=== PATIENT | female | born 2000 | race Two or more races ===

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

== ENCOUNTER 2022-08-13 08:00 | Outpatient (CLI) | payer MEDICAID ==
[2022-08-13 23:15] LABS: CHLAMYDIA TRACHOMATIS DNA NEGATIVE (NEGATIVE); NEISSERIA GONORRHOEAE DNA NEGATIVE (NEGATIVE); TRICHOMONAS VAGINALIS DNA NEGATIVE (NEGATIVE)
== END 2022-08-13 23:59 | disposition home or self-care (01) ==
LOC: LAB.WC 08:00
PROVIDERS: ATTEND Nurse Practitioner
DX: Z11.3 Encounter for screening for infections with a predominantly sexual mode of transmission (principal)
CPT/HCPCS: 87491; 87591; 87661

== ENCOUNTER 2023-06-29 08:00 | Outpatient (CLI) | payer MEDICAID ==
[2023-06-29 23:13] LABS: NEISSERIA GONORRHOEAE DNA NEGATIVE (NEGATIVE); TRICHOMONAS VAGINALIS DNA NEGATIVE (NEGATIVE)
[2023-06-29 23:14] LABS: CHLAMYDIA TRACHOMATIS DNA POSITIVE (NEGATIVE)
== END 2023-06-29 23:59 | disposition home or self-care (01) ==
LOC: LAB.WC 08:00
PROVIDERS: ATTEND Nurse Practitioner
DX: Z11.3 Encounter for screening for infections with a predominantly sexual mode of transmission (principal)
CPT/HCPCS: 87491; 87591; 87661

== ENCOUNTER 2023-06-29 14:47 | Outpatient (CLI) | payer MEDICAID ==
[2023-06-30 05:12] LABS: RPR Non Reactive (Non Reactive)
[2023-06-30 07:10] LABS: HBsAG SCREEN Negative (Negative); HCV AB Non Reactive (Non Reactive); HIV SCREEN 4TH GENERATION Non Reactive (Non Reactive)
[2023-06-30 08:10] LABS: HSV 2 IGG TYPE SPEC <0.91 index (0.00-0.90)
== END 2023-06-29 14:48 | disposition home or self-care (01) ==
LOC: LAB 14:47
PROVIDERS: ATTEND Nurse Practitioner
DX: Z11.3 Encounter for screening for infections with a predominantly sexual mode of transmission (principal)
CPT/HCPCS: 36415; 86592; 86695; 86696; 86803; 87340; 87389; 87491; 87591; 87661

== ENCOUNTER 2023-08-06 08:00 | Outpatient (CLI) | payer MEDICAID ==
[2023-08-06 22:24] LABS: CHLAMYDIA TRACHOMATIS DNA NEGATIVE (NEGATIVE); NEISSERIA GONORRHOEAE DNA NEGATIVE (NEGATIVE); TRICHOMONAS VAGINALIS DNA NEGATIVE (NEGATIVE)
== END 2023-08-06 23:59 | disposition home or self-care (01) ==
LOC: LAB.WC 08:00
PROVIDERS: ATTEND Nurse Practitioner
DX: Z11.3 Encounter for screening for infections with a predominantly sexual mode of transmission (principal)
CPT/HCPCS: 87491; 87591; 87661

== ENCOUNTER 2023-08-23 15:56 | Outpatient (CLI) | payer MEDICAID ==
--- NOTE | 2023-08-24 11:06 | Ultrasound Report ---
PROCEDURE: Pelvic w/Transvaginal INDICATIONS: PELVIC PAIN TECHNIQUE: Real-time scanning was performed of the pelvic organs, with image documentation. Additional endovagi nal scanning was necessary due to incomplete visualization of the adnexal and endometrial structures by transabdominal scanning. COMPARISON: Ultrasound 03/02/2014 FINDINGS: Uterus: Uterus is variable in orientation and normal in size at 6.2 x 3.0 x 4.1 cm. The myometrium is homogeneous. The endometrium measures 3.3 mm in combined thickness. Small cervix calcification, presumably intravascular. Ovaries: The right ovary measures 3.4 x 1.6 x 2.8 cm, with a calculated ovarian volume of 8 cc. The left ovary measures 2.7 x 1.5 x 2.6 cm, with a calculated ovarian volume of 5.2 cc. The ovaries hav e a normal sonographic appearance. Less than 12 follicles can be seen in each ovary. No adnexal mas ses are seen. No cystic lesions measuring greater than 3 cm. Other: No pathologic free abdominal or pelvic fluid. IMPRESSION: Normal pelvic ultrasound. No findings to explain the patient's pelvic pain. No fibroids or adenomyosi s. Reviewed by: Bravo Schuster MD on 08/24/2023 11:05 AM PDT Approved by: Bravo Schuster MD on 08/24/2023 11:05 AM PDT Station ID: [id number]
== END 2023-08-23 15:57 | disposition home or self-care (01) ==
LOC: DI 15:56
PROVIDERS: ATTEND Nurse Practitioner
DX: R10.2 Pelvic and perineal pain (principal)

== ENCOUNTER 2024-01-24 08:00 | Outpatient (CLI) | payer MEDICAID ==
[2024-01-24 22:34] LABS: CHLAMYDIA TRACHOMATIS DNA NEGATIVE (NEGATIVE); NEISSERIA GONORRHOEAE DNA NEGATIVE (NEGATIVE); TRICHOMONAS VAGINALIS DNA NEGATIVE (NEGATIVE)
== END 2024-01-24 23:59 | disposition home or self-care (01) ==
LOC: LAB.WC 08:00
PROVIDERS: ATTEND Obstetrics & Gynecology
DX: Z11.3 Encounter for screening for infections with a predominantly sexual mode of transmission (principal)
CPT/HCPCS: 87491; 87591; 87661

== ENCOUNTER 2024-01-24 15:36 | Outpatient (CLI) | payer MEDICAID | END 2024-01-24 15:37 | disposition home or self-care (01) | LOC: LAB 15:36 | PROVIDERS: ATTEND Obstetrics & Gynecology | DX: Z11.3 Encounter for screening for infections with a predominantly sexual mode of transmission (principal) | CPT/HCPCS: 36415; 86592; 86803; 87340; 87389; 87491; 87591; 87661 ==